=== PATIENT | male | born 2000 | race Hispanic/Latino ===

== ENCOUNTER 2023-12-29 19:08 | Emergency (ER) | payer OTHER ==
[~2023-12-29] VITALS: Ht 162.6 cm; Wt 65.8 kg
[2023-12-29 22:31] VITALS: BP 134/68; PULSE 88; RESP 20; O2SAT 100
== END 2023-12-29 23:06 | disposition home or self-care (01) ==
LOC: EDH 19:08
DX: Z04.1 Encounter for examination and observation following transport accident (principal)
CPT/HCPCS: 99282